=== PATIENT | female | born 1980 | race African-American/Black ===

== ENCOUNTER 2018-06-24 17:45 | Emergency (ER) | payer MEDICAID ==
[2018-06-24 18:01] LABS: Bilirubin Negative (Negative); Blood, Urine Large (Negative); Clarity Clear (Clear); Glucose, Urine (Dipstick) Negative (Negative); Leukocyte Negative (Negative); Nitrite Negative (Negative); Protein, Urine (Dipstick) Negative (Neg-Trace); Urobilinogen 0.2 mg/dL (0.2-1.0)
[2018-06-24 18:02] LABS: Pregnancy Test - Urine (BHCG) Negative (Negative)
[2018-06-24 18:03] LABS: Pregu Control Background? CLEAR/WHITE (CLR/WHITE); Pregu Control Bar Appear? YES (CONTROL BAR)
[2018-06-24 18:10] LABS: Bacteria/HPF Rare-Few HPF (None Seen); RBC/HPF 0-3 HPF (0-3); WBC/HPF None Seen HPF (0-3)
[2018-06-24 18:37] LABS: #Basophils 0.2 thou/uL (0.0-0.2); #Eosinphils 0.2 thou/uL (0.0-0.7); #Lymphocytes 1.5 thou/uL (1.20-3.40); #Monocytes 0.8 thou/uL (0.11-0.59); #Neutrophils 5.7 thou/uL (1.40-6.50); %Basophils 2.2 % (0.0-1.0); %Eosinophils 2.5 % (0.0-10.0); %Lymphocytes 18.4 % (21.0-51.0); %Monocytes 9.2 % (0.0-10.0); %Neutrophils 67.6 % (42.0-75.0); Hemoglobin 8.5 g/dL (12.0-16.0); Mean Corpuscular HGB CONC 29.5 g/dL (32.0-36.0); Mean Corpuscular Hemoglobin 18.9 pg (27.0-31.0); Mean Corpuscular Volume 63.9 fL (78.0-98.0); Mean Platelet Volume 6.8 fL (7.4-10.4); Platelet Count 422 thou/uL (130-400); RBC Distribution Width 17.6 % (11.5-14.5); Red Blood Cell (RBC) Count 4.49 mill/uL (4.20-5.40); White Blood Cell (WBC) Count 8.4 thou/uL (4.8-10.8)
[2018-06-24 18:45] LABS: ALT (SGPT) 8 U/L (8-55); AST (SGOT) 11 U/L (5-34); Albumin 4.1 g/dL (3.5-5.0); Alkaline Phosphatase 82 U/L (40-150); Anion Gap 14 mmol/L (10-20); BUN (Urea Nitrogen) 6 mg/dL (7.0-18.7); Bilirubin, Total 0.5 mg/dL (0.2-1.2); Calc. Creatinine Clearance 0 mL/min (70-130); Calcium 9.2 mg/dL (7.8-10.44); Carbon Dioxide 21 mmol/L (22-29); Chloride 104 mmol/L (98-107); Estimated GFR-MDRD Greater than 90; Globulin 3.2 g/dL (2.4-3.5); Glucose 108 mg/dL (70-105); Lipase 5 U/L (8-78); Potassium 4.1 mmol/L (3.5-5.1); Protein, Total 7.3 g/dL (6.0-8.3)
[2018-06-24 18:55] LABS: Manual Diff?? NO
[2018-06-24 18:57] LABS: Anisocytosis SLIGHT = 6-15 cells (100X) (0-5/hpf); Hypochromia SLIGHT = 6-15 cells (100X) (0-5/hpf); Microcytosis SLIGHT = 6-15 cells (100X) (0-5/hpf); Polychromasia SLIGHT = 2-3 cells (100X) (0-2/hpf)
[2018-06-24 18:58] LABS: Sodium 135 mmol/L (136-145)
[2018-06-24] MEDS ORDERED: HYDROcodone/Acetaminophen 5/325 mg Tablet ONE (19:39)
--- NOTE | 2018-06-24 20:59 | CT ---
CT ABDOMEN AND PELVIS WITHOUT CONTRAST 06/24/18 HISTORY: Left sided abdominal pain. Nausea. COMPARISON: None. FINDINGS: There are multiple small sub 4 mm pulmonary nodules in the right middle lobe. No pericardial effusion . No nephroureterolithiasis is appreciated. Uterus is enlarged. Calcification along the left adnexa. No free intraperitoneal gas or fluid. No dilated loops of large or small bowel. The appendix is visualized and is normal. Aortoiliac contour is nonaneurysmal. Noncontrast evaluation of the liver, gallbladder, spleen and pancreas are all unremarkable. IMPRESSION: 1. No nephroureterolithiasis or hydroureteronephrosis. No secondary evidence of recently passed stone. 2. Enlarged uterus. 3. Normal appendix. 4. No acute inflammatory process in the abdomen or pelvis. POS: [facility]
== END 2018-06-24 19:54 | disposition home or self-care (01) ==
LOC: MADERS 17:45
DX: R10.32 Left lower quadrant pain (principal); D64.9 Anemia, unspecified; E11.9 Type 2 diabetes mellitus without complications; Z79.84 Long term (current) use of oral hypoglycemic drugs; Z79.899 Other long term (current) drug therapy
CPT/HCPCS: 36415; 74176; 80053; 81003; 81015; 81025; 83690; 85025

== ENCOUNTER 2019-03-09 08:57 | Outpatient (CLI) | payer MEDICAID ==
--- NOTE | 2019-03-09 11:12 | ULT ---
PELVIC ULTRASOUND: HISTORY: Heavy bleeding. COMPARISON: A CT examination of 06/24/2018. FINDINGS: Real-time imaging of the pelvis was obtained transabdominally as well as with an endovaginal probe. This shows an enlarged uterus measuring 6.7 x 10.5 x 13 cm. The uterus itself has a very heterogeneo us echotexture. There is a 4.3 cm mass noted which distorts the endometrium and probably represents a submucosal fibroid. The fundus region is also very heterogeneous and may represent other fibromato us change in this region. Neither the right or left ovary is identified. Endometrium is difficult to measure but is approximately 1.1 cm. IMPRESSION: Enlarged heterogeneous fibromatous-appearing uterus. POS: [facility]
== END 2019-03-09 08:58 | disposition home or self-care (01) ==
LOC: MADULT 08:57
PROVIDERS: ATTEND Family Medicine
DX: D25.9 Leiomyoma of uterus, unspecified (principal); D50.9 Iron deficiency anemia, unspecified; N92.1 Excessive and frequent menstruation with irregular cycle
CPT/HCPCS: 76856

== ENCOUNTER 2023-10-24 17:46 | Emergency (ER) | payer OTHER | END 2023-10-24 19:54 | disposition home or self-care (01) | LOC: MADERS 17:46 | DX: J10.1 Influenza due to other identified influenza virus with other respiratory manifestations (principal); E11.9 Type 2 diabetes mellitus without complications; F17.290 Nicotine dependence, other tobacco product, uncomplicated | CPT/HCPCS: 87804; 99283 ==

== ENCOUNTER 2024-09-13 17:02 | Emergency (ER) | payer OTHER ==
[2024-09-13] MEDS ORDERED: Tetracaine 0.5% PF 4 ML BOT ONE (17:42)
[2024-09-13] MEDS ORDERED: traMADol HCl 50 MG TAB ONE ×2 (17:42→19:45)
[2024-09-13] MEDS ORDERED: Oxymetazoline HCl 0.05% (30 ML BOT) ONE (17:49)
== END 2024-09-13 19:55 | disposition home or self-care (01) ==
LOC: MADERS 17:02
DX: S05.01XA Injury of conjunctiva and corneal abrasion without foreign body, right eye, initial encounter (principal); S05.02XA Injury of conjunctiva and corneal abrasion without foreign body, left eye, initial encounter; E11.9 Type 2 diabetes mellitus without complications; F17.290 Nicotine dependence, other tobacco product, uncomplicated; X58.XXXA Exposure to other specified factors, initial encounter
CPT/HCPCS: 99283

== ENCOUNTER 2024-10-26 13:18 | Emergency (ER) | payer OTHER ==
[2024-10-26] MEDS ORDERED: Fluorescein Opthalmic Strip ONE (13:27)
[2024-10-26] MEDS ORDERED: Tetracaine 0.5% PF 4 ML BOT ONE (13:27)
== END 2024-10-26 15:42 | disposition home or self-care (01) ==
LOC: MADERS 13:18
DX: H16.9 Unspecified keratitis (principal)
CPT/HCPCS: 99283

== ENCOUNTER 2024-11-03 20:19 | Emergency (ER) | payer OTHER ==
[2024-11-03] MEDS ORDERED: Tetracaine 0.5% PF 4 ML BOT ONE (22:52)
== END 2024-11-04 00:12 | disposition home or self-care (01) ==
LOC: MADERS 20:19
DX: S05.02XA Injury of conjunctiva and corneal abrasion without foreign body, left eye, initial encounter (principal); H16.002 Unspecified corneal ulcer, left eye
CPT/HCPCS: 99283